=== PATIENT | female | born 1945 | race Caucasian/White ===

== ENCOUNTER → 2018-11-12 13:29 | Outpatient (CLI) | payer MEDICARE, SELFPAY ==
[2018-11-12 14:01] LABS: Add Manual Diff / Slide Review NO; Basophils Absolute Auto 100 /uL (0-100); Basophils Percent Auto 0.9 % (0-2); Eosinophils Absolute Auto 300 /uL (0-450); Eosinophils Percent Auto 4.1 % (2-4); Hematocrit 44.7 % (36-46); Hemoglobin 15.1 g/dL (12.0-16.0); Lymphocytes Absolute Auto 1700 /uL (1100-4500); Lymphocytes Percent Auto 23.7 % (25-40); Mean Corpuscular HGB Conc 33.9 % (30-36); Mean Corpuscular Hemoglobin 30.7 PG (26-34); Mean Corpuscular Volume 90.5 fL (80-100); Monocytes Absolute Auto 600 /uL (0-900); Monocytes Percent Auto 8.6 % (3-14); Neutrophils Absolute Auto 4600 /uL (1500-7000); Neutrophils Percent Auto 62.7 % (50-75); Platelet Count 322 X10^3/uL (150-400); Red Blood Cell Count 4.94 X10^6/uL (4.0-5.2); Red Cell Distribution Width 13.9 % (11.6-14.8); White Blood Cell Count 7.3 X10^3/uL (4.5-11.0)
[2018-11-12 15:26] LABS: Alanine Aminotransferase 14 IU/L (9-52); Albumin 4.1 g/dL (3.5-5.0); Albumin Globulin Ratio 1.2 (1.0-2.8); Alkaline Phosphatase 90 U/L (38-126); Aspartate Aminotransferase 21 IU/L (14-36); Bilirubin Total 0.6 mg/dL (0.2-1.3); Blood Urea Nitrogen 16 mg/dL (7-17); Calcium 9.2 mg/dL (8.4-10.2); Carbon Dioxide 28 mmol/L (22-32); Chloride 105 mmol/L (98-107); Cholesterol 195 mg/dL (140-199); Estimated Glomerular Filt Rate > 60.0 mL/min (>60); Globulin 3.3 g/dL (1.7-4.1); Glucose 97 mg/dL (80-110); HDL Cholesterol 59 mg/dL (40-60); HEMOLYSIS < 15 (0-50); LDL Cholesterol Calculated 99 mg/dL (<100); Potassium 4.4 mmol/L (3.4-5.1); Sodium 140 mmol/L (137-145); Total Protein 7.4 g/dL (6.3-8.2); Triglycerides 186 mg/dL (35-150)
[2018-11-12 15:42] LABS: Vitamin D 25 Hydroxy (D3) 22.5 ng/mL (30.0-100.0)
[2018-11-12 15:45] LABS: Free T4, Direct Thyroxine 0.78 ng/dL (0.78-2.19)
[2018-11-12 16:28] LABS: Thyroid Stimulating Hormone 2.89 uIU/mL (0.47-4.68)
[2018-11-17 09:13] LABS: Triiodothyronine T3 Total 157 ng/dL (76-181)
== END ==
PROVIDERS: Visit Provider Internal Medicine
DX: Z13.820 Encounter for screening for osteoporosis (principal); M85.851 Other specified disorders of bone density and structure, right thigh; E55.9 Vitamin D deficiency, unspecified; E07.9 Disorder of thyroid, unspecified; Z85.42 Personal history of malignant neoplasm of other parts of uterus; Z13.220 Encounter for screening for lipoid disorders
CPT/HCPCS: 36415; 77080; 80053; 80061; 82306; 84439; 84443; 84480; 85025

== ENCOUNTER → 2019-07-13 13:00 | Outpatient (CLI) | payer OTHER, SELFPAY ==
[2019-07-13 14:25] LABS: Hematocrit 42.8 % (36-46); Hemoglobin 14.6 g/dL (12.0-16.0); Mean Corpuscular HGB Conc 34.2 % (30-36); Mean Corpuscular Hemoglobin 31.8 PG (26-34); Mean Corpuscular Volume 92.9 fL (80-100); Platelet Count 303 X10^3/uL (150-400); Red Cell Distribution Width 13.2 % (11.6-14.8); White Blood Cell Count 6.7 X10^3/uL (4.5-11.0)
[2019-07-13 15:02] LABS: Neutrophils Absolute Manual 4288 /uL (3000-5900); RBC Morphology Normal Morphology; Total Cells Counted 100
[2019-07-13 15:13] LABS: Alanine Aminotransferase 13 IU/L (<35); Albumin 4.3 g/dL (3.5-5.0); Albumin Globulin Ratio 1.2 (1.0-2.8); Alkaline Phosphatase 82 U/L (38-126); Aspartate Aminotransferase 23 IU/L (14-36); Bilirubin Total 0.4 mg/dL (0.2-1.3); Blood Urea Nitrogen 12 mg/dL (7-17); Calcium 9.3 mg/dL (8.4-10.2); Carbon Dioxide 26 mmol/L (22-32); Chloride 107 mmol/L (98-107); Cholesterol 178 mg/dL (140-199); Estimated Glomerular Filt Rate > 60.0 mL/min (>60); Globulin 3.5 g/dL (1.7-4.1); Glucose 102 mg/dL (80-110); HDL Cholesterol 46 mg/dL (40-60); HEMOLYSIS < 15 (0-50); LDL Cholesterol Calculated 99 mg/dL (<100); Potassium 3.7 mmol/L (3.4-5.1); Sodium 141 mmol/L (137-145); Total Protein 7.8 g/dL (6.3-8.2); Triglycerides 166 mg/dL (35-150)
[2019-07-13 16:13] LABS: Vitamin D 25 Hydroxy (D3) 25.3 ng/mL (30.0-100.0)
[2019-07-13 16:14] LABS: Free T3, Triiodothyronine Free 5.35 pg/mL (2.77-5.27)
[2019-07-13 16:29] LABS: TSH w/ Reflex to FT4 0.47 uIU/mL (0.47-4.68)
== END ==
PROVIDERS: PCP Internal Medicine; Referring Provider Internal Medicine; Visit Provider Internal Medicine
DX: Z13.220 Encounter for screening for lipoid disorders (principal); E03.9 Hypothyroidism, unspecified; E88.9 Metabolic disorder, unspecified; Z85.42 Personal history of malignant neoplasm of other parts of uterus
CPT/HCPCS: 36415; 80053; 80061; 82306; 84443; 84481; 85025

== ENCOUNTER → 2019-07-25 12:47 | Outpatient (CLI) | payer OTHER, SELFPAY ==
--- NOTE | 2019-07-25 | DI.MRI.S_ITS ---
PROCEDURE: MR HEAD/BRAIN WO CON INDICATIONS: HEADACHE TECHNIQUE: Non-contrast axial T1 spin echo, axial T2 fast spin echo, sagittal and axial FLAIR, coronal T2 fast spin echo, axial gradient echo, axial diffusion and ADC through the brain. COMPARISON: [facility], MR, MR ANGIO HEAD WO CON, 07/25/2019, 13:05. FINDINGS: Image quality: Excellent. CSF spaces: Ventricles appear symmetric in size and shape. Basal cisterns are patent. No extra-axial fluid collections. Brain: No intracranial bleeds or mass effects. There is cerebral volume loss for age. There are periventricular and deep white matter chronic small vessel ischemic changes. Brainstem appears normal. Diffusion-weighted images show no acute ischemic insults. No chronic ischemic insults. Normal intravascular flow voids are present. Skull and face: Calvarial bone marrow is normal in signal. Incidental note is made of hyperostosis frontalis. This is not considered to be pathologic in a woman of this age. Orbits are normal. Note is made of bilateral lens replacements. Sinuses: Sinuses and mastoids are clear. IMPRESSION: Unremarkable intracranial study, without an imaging explanation found for the patient's presenting history of headache. Note is made of age-appropriate brain parenchymal volume loss and chronic small vessel ischemic changes. Dictated by: Ky Harding M.D. on 07/25/2019 at 13:28 Approved by: Ky Harding M.D. on 07/25/2019 at 13:29
--- NOTE | 2019-07-25 | DI.MRI.S_ITS ---
PROCEDURE: MR ANGIO HEAD WO CON INDICATIONS: HEADACHE TECHNIQUE: Noncontrast axial 3-D [id number] MR angiogram, with 3-dimensional maximum intensity projection (MIP) reformats of the internal carotid arteries and posterior circulation then performed. COMPARISON: [facility], , MR HEAD/BRAIN WO CON, 07/25/2019, 13:05. FINDINGS: Image quality: Excellent. Anterior circulation: Intracranial internal carotid arteries demonstrate normal size and intraluminal flow signal. The flow within the paired anterior cerebral arteries is normal and symmetric. The flow within the middle cerebral arteries is normal and symmetric. The anterior communicating artery is not definitely seen. No stenoses, occlusions, or aneurysms. Posterior circulation: Visualized portions of the vertebral arteries demonstrate normal caliber, and join to form a normal appearing basilar artery. The flow within the posterior cerebral arteries is normal and symmetric. No stenoses, occlusions, or aneurysms. IMPRESSION: No findings of aneurysm can be seen in this patient a presenting history of headaches. Dictated by: Ky Harding M.D. on 07/25/2019 at 13:29 Approved by: Ky Harding M.D. on 07/25/2019 at 13:30
--- NOTE | 2019-07-25 | DI.CT.S_ITS ---
PROCEDURE: CT ABDOMEN PELVIS W CON INDICATIONS: ABDOMINAL PAIN TECHNIQUE: After the administration of oral and intravenous contrast, 5 mm thick sections acquired from the diaphragms to the symphysis. 5 mm thick coronal and sagittal reformats were performed. For radiation dose reduction, the following was used: automated exposure control, adjustment of mA and/or kV according to patient size. COMPARISON: None. FINDINGS: Image quality: Excellent. ABDOMEN: Lung bases: Lung bases are clear. Heart size is normal. Solid organs: Mild hepatic steatosis. Gallbladder surgically absent. Biliary system is non-dilated. Pancreas enhances normally. Spleen is normal in size and enhancement. No adrenal nodules. Kidneys are normal in size and enhancement, without hydronephrosis. Peritoneum and bowel: Postsurgical changes present at the GE junction.. There is questionable duodenal and proximal jejunal mural thickening however limited evaluation given relatively collapsed state. Scattered air-fluid levels seen without pathologic bowel dilatation No free fluid or air. Normal appendix. Colonic diverticulosis is seen without evidence of acute complication. Nodes and vessels: No retroperitoneal or mesenteric adenopathy. Aorta and inferior vena cava are normal in caliber. Miscellaneous: No ventral hernias. PELVIS: Genitourinary: Bladder largely collapsed and grossly unremarkable Miscellaneous: No inguinal hernias or adenopathy. Bones: No suspicious bony lesions. No vertebral body compression fractures. IMPRESSION: Questionable duodenal and proximal jejunal mural thickening raising possibility of low-grade enteritis, although limited evaluation given largely collapsed state of bowel. Please correct clinically and with laboratory data Elsewhere, no acute findings. No specific evidence of metastatic disease. Dictated by: Goran Kim M.D. on 07/25/2019 at 16:12 Approved by: Goran Kim M.D. on 07/25/2019 at 16:19
== END ==
PROVIDERS: PCP Internal Medicine; Referring Provider Internal Medicine; Visit Provider Internal Medicine
DX: G44.329 Chronic post-traumatic headache, not intractable (principal); H05.26 Pulsating exophthalmos; S09.90XS Unspecified injury of head, sequela; R10.9 Unspecified abdominal pain; K76.0 Fatty (change of) liver, not elsewhere classified; K57.90 Diverticulosis of intestine, part unspecified, without perforation or abscess without bleeding; Z90.49 Acquired absence of other specified parts of digestive tract
CPT/HCPCS: 70544; 70551; 74177; Q9967

== ENCOUNTER → 2019-07-26 18:42 | Outpatient (ROUT) | payer OTHER, SELFPAY | PROVIDERS: PCP Internal Medicine; Visit Provider Internal Medicine | DX: R35.0 Frequency of micturition (principal) | CPT/HCPCS: 87077; 87086; 87186 ==

== ENCOUNTER → 2019-11-03 14:09 | Outpatient (CLI) | payer OTHER, SELFPAY ==
[2019-11-03 17:55] LABS: T4 Total Thyroxine 9.92 ug/dL (5.5-11.0)
[2019-11-03 17:56] LABS: Vitamin D 25 Hydroxy (D3) 28.4 ng/mL (30.0-100.0)
[2019-11-03 18:09] LABS: TSH w/ Reflex to FT4 2.25 uIU/mL (0.47-4.68)
[2019-11-04 07:49] LABS: Triiodothyronine T3 Total 90 ng/dL (71-180)
== END ==
PROVIDERS: PCP Internal Medicine; Referring Provider Internal Medicine; Visit Provider Internal Medicine
DX: R10.9 Unspecified abdominal pain (principal); E03.9 Hypothyroidism, unspecified; E55.9 Vitamin D deficiency, unspecified
CPT/HCPCS: 36415; 82306; 84436; 84443; 84480

== ENCOUNTER → 2019-11-07 14:56 | Outpatient (CLI) | payer OTHER, SELFPAY ==
--- NOTE | 2019-11-07 | DI.RAD.S_ITS ---
PROCEDURE: XR FOOT RT MIN 3V INDICATIONS: PAIN IN RIGHT FOOT TECHNIQUE: 3 views of the foot were acquired. COMPARISON: None. FINDINGS: Bones: No fractures or dislocations. No suspicious bony lesions. Soft tissues: No tibiotalar joint effusion. Achilles tendon appears normal. IMPRESSION: Source of pain is not seen. Dictated by: Josiah Johnson M.D. on 11/07/2019 at 15:42 Approved by: Josiah Johnson M.D. on 11/07/2019 at 15:43
[2019-11-07 16:09] LABS: Add Manual Diff / Slide Review NO; Basophils Absolute Auto 100 /uL (0-100); Eosinophils Absolute Auto 400 /uL (0-450); Eosinophils Percent Auto 4.6 % (2-4); Hematocrit 41.7 % (36-46); Hemoglobin 14.4 g/dL (12.0-16.0); Lymphocytes Absolute Auto 1800 /uL (1100-4500); Lymphocytes Percent Auto 18.8 % (25-40); Mean Corpuscular HGB Conc 34.4 % (30-36); Mean Corpuscular Hemoglobin 31.6 PG (26-34); Mean Corpuscular Volume 91.8 fL (80-100); Monocytes Absolute Auto 700 /uL (0-900); Monocytes Percent Auto 7.9 % (3-14); Neutrophils Absolute Auto 6300 /uL (1500-7000); Neutrophils Percent Auto 67.7 % (50-75); Platelet Count 353 X10^3/uL (150-400); Red Blood Cell Count 4.55 X10^6/uL (4.0-5.2); Red Cell Distribution Width 13.9 % (11.6-14.8); White Blood Cell Count 9.4 X10^3/uL (4.5-11.0)
[2019-11-07 16:24] LABS: Alanine Aminotransferase 12 IU/L (<35); Albumin 4.1 g/dL (3.5-5.0); Albumin Globulin Ratio 1.1 (1.0-2.8); Alkaline Phosphatase 78 U/L (38-126); Aspartate Aminotransferase 21 IU/L (14-36); BUN Creatinine Ratio 23.3 (6-22); Bilirubin Total 0.4 mg/dL (0.2-1.3); Blood Urea Nitrogen 20 mg/dL (7-17); Calcium 9.6 mg/dL (8.4-10.2); Carbon Dioxide 28 mmol/L (22-32); Chloride 104 mmol/L (98-107); Estimated Glomerular Filt Rate > 60.0 mL/min (>60); Globulin 3.6 g/dL (1.7-4.1); Glucose 102 mg/dL (80-110); HEMOLYSIS < 15 (0-50); Potassium 4.4 mmol/L (3.4-5.1); Sodium 140 mmol/L (137-145); Total Protein 7.7 g/dL (6.3-8.2); Uric Acid 9.5 mg/dL (2.5-6.2)
[2019-11-07 16:31] LABS: C-Reactive Protein Quant < 0.5 mg/dL (<1.0)
[2019-11-07 16:44] LABS: Erythrocyte Sedimentation Rate 13 MM/HR (0-20)
== END ==
PROVIDERS: Physician Assistant; PCP Internal Medicine; Referring Provider Internal Medicine; Visit Provider Internal Medicine
DX: M10.9 Gout, unspecified (principal); M79.671 Pain in right foot
CPT/HCPCS: 36415; 73630; 80053; 84550; 85025; 85651; 86140

== ENCOUNTER → 2019-11-10 13:07 | Outpatient (CLI) | payer OTHER, SELFPAY ==
--- NOTE | 2019-11-10 | DI.MRI.S_ITS ---
PROCEDURE: MR CERVICAL SPINE WO CON INDICATIONS: Radiculopathy, cervical region TECHNIQUE: Noncontrast sagittal T1 spin echo and T2 fast spin echo, sagittal STIR, foraminal oblique sagittal T2 fast spin echo, and axial gradient echo or T2 fast spin echo through the cervical spine. COMPARISON: None. FINDINGS: Image quality: Excellent. Alignment and Curvature: There is mild reversal of normal cervical curvature with apex at C4. There is trace retrolisthesis of C4 on C5, C5 on C6, trace anterolisthesis of C7 on T1. Bone Marrow: Marrow demonstrates normal overall signal. Spinal Cord: Visualized spinal cord has normal size and signal. No cerebellar tonsillar herniation. Paraspinous Soft Tissues: No paravertebral masses. Prevertebral soft tissues are normal in thickness. Discs: Moderate to severe desiccation is present of the cervical spine. C2-C3: Minimal disc bulge without spinal stenosis or foraminal narrowing. Mild uncovertebral hypertrophy. C3-C4: Mild disc bulge with mild/moderate spinal stenosis. Moderate left foraminal narrowing with uncovertebral hypertrophy. C4-C5: Mild disc bulge with moderate to severe spinal stenosis and slight indentation of the anterior thecal sac and cord. Minimal right and moderate left foraminal narrowing with uncovertebral hypertrophy. C5-C6: Mild disc bulge with moderate to severe spinal stenosis. Moderate bilateral foraminal narrowing, left greater than right with uncovertebral hypertrophy. C6-C7: Mild disc bulge with moderate to severe spinal stenosis. Moderate to severe right and moderate left foraminal narrowing with uncovertebral hypertrophy. C7-T1: Mild disc bulge without spinal stenosis or foraminal narrowing. IMPRESSION: 1. Multilevel spinal stenosis most severe from C4-5 through C6-7 secondary to disc bulge which contribute infected reversal cervical curvature. 2. Multilevel foraminal narrowing most severe at C6-7 secondary to uncovertebral arthropathy. Dictated by: Misty Davila M.D. on 11/10/2019 at 16:20 Approved by: Misty Davila M.D. on 11/10/2019 at 16:28
== END ==
PROVIDERS: PCP Internal Medicine; Referring Provider Internal Medicine; Visit Provider Internal Medicine
DX: M50.11 Cervical disc disorder with radiculopathy, high cervical region (principal); M48.02 Spinal stenosis, cervical region
CPT/HCPCS: 72141

== ENCOUNTER → 2020-01-03 19:25 | Outpatient (ROUT) | payer OTHER, SELFPAY ==
[2020-01-05 16:36] LABS: t-Transglutaminase IgA <2 U/mL (0-3)
== END ==
PROVIDERS: PCP Internal Medicine; Visit Provider Internal Medicine
DX: Z91.018 Allergy to other foods (principal)
CPT/HCPCS: 83516; 86003

== ENCOUNTER → 2020-03-02 14:41 | Outpatient (ROUT) | payer OTHER, SELFPAY | PROVIDERS: PCP Internal Medicine; Visit Provider Internal Medicine | DX: N39.46 Mixed incontinence (principal) | CPT/HCPCS: 87086 ==

== ENCOUNTER → 2020-12-27 16:02 | Outpatient (CLI) | payer MEDICARE, SELFPAY ==
[2020-12-27 16:17] LABS: Bacteria Urine None Seen
[2020-12-27 17:00] LABS: Appearance Urine UA CLEAR; Bilirubin Urine UA NEGATIVE (NEGATIVE); Color Urine UA YELLOW; Glucose Urine UA NEGATIVE (Negative); Ketones Urine UA TRACE (NEGATIVE); Leukocyte Esterase Urine UA 1+ (NEGATIVE); Nitrite Urine UA POSITIVE (Negative); Occult Blood Urine UA TRACE-LYSED (Negative); Protein Urine UA TRACE (Negative); Specific Gravity Urine UA 1.025 (1.000-1.035); Urobilinogen Urine UA 0.2 E.U./dL (0.2)
[2020-12-27 17:01] LABS: pH Urine UA 5.5 (4.5-8.0)
[2020-12-27 17:04] LABS: Culture Indicated Urine Specimen Cultured; RBC Urine 1-5/HPF (0-5/HPF); Squamous Epithelial Cell Urine 0-1 /HPF (0-5/HPF); WBC Urine 5-10/HPF (0-5/HPF)
== END ==
PROVIDERS: PCP Student in an Organized Health Care Education/Training Program; Referring Provider Student in an Organized Health Care Education/Training Program; Visit Provider Student in an Organized Health Care Education/Training Program
DX: N39.490 Overflow incontinence (principal)
CPT/HCPCS: 81001; 87077; 87086; 87186

== ENCOUNTER → 2021-01-03 09:34 | Outpatient (CLI) | payer MEDICARE, SELFPAY ==
--- NOTE | 2021-01-03 09:35 | DI.RAD.S_ITS ---
PROCEDURE: XR FOOT LT MIN 3V INDICATIONS: L lateral proximal 5th MTP pain, not able to walk TECHNIQUE: 3 views of the foot were acquired. COMPARISON: [facility], CR, XR FOOT RT MIN 3V, 11/07/2019, 15:14. FINDINGS: Bones: No fractures or dislocations. No suspicious bony lesions. Mild 1st MTP degenerative change. Soft tissues: No tibiotalar joint effusion. Achilles tendon appears normal. IMPRESSION: No evidence acute bony abnormality of the left foot. If clinical suspicion and/or symptoms persist, further assessment with repeat plain films, or advanced imaging (e.g., CT, MRI, or bone scan) may be helpful for further assessment. Dictated by: Eliezer Anne M.D. on 01/03/2021 at 9:58 Approved by: Eliezer Anne M.D. on 01/03/2021 at 9:59
--- NOTE | 2021-01-03 09:35 | DI.RAD.S_ITS ---
PROCEDURE: XR ANKLE LT MIN 3V INDICATIONS: L lateral proximal 5th MTP pain, not able to walk TECHNIQUE: 3 views of the ankle were acquired. COMPARISON: [facility], CR, XR FOOT LT MIN 3V, 01/03/2021, 9:33. FINDINGS: Bones: No fractures or dislocations. Ankle mortise is normally aligned. No suspicious bony lesions. Soft tissues: No tibiotalar joint effusion. Achilles tendon appears normal. IMPRESSION: No evidence acute bony abnormality of the left ankle. If clinical suspicion and/or symptoms persist, further assessment with repeat plain films, or advanced imaging (e.g., CT, MRI, or bone scan) may be helpful for further assessment. Dictated by: Eliezer Anne M.D. on 01/03/2021 at 9:56 Approved by: Eliezer Anne M.D. on 01/03/2021 at 9:58
== END ==
PROVIDERS: PCP Student in an Organized Health Care Education/Training Program; Referring Provider Physician Assistant; Visit Provider Physician Assistant
DX: M79.672 Pain in left foot (principal)
CPT/HCPCS: 73610; 73630

== ENCOUNTER → 2021-02-11 13:40 | Outpatient (CLI) | payer MEDICARE, SELFPAY ==
--- NOTE | 2021-02-11 13:49 | DIET.CONS ---
Dietary Consultation Not Assessment: 75y F referred to nutrition for help with diet for gouty flairs. Pt reports hx of 2 gout attacks recently and feels she has uric acid crystals built up in her ear cartilage. Pt reports long hx constipation recently told to eat more dietary fiber, when she tried, she had significant abd px. PMHx: sleeve gastrectomy about 10y ago lost 90# initially then gained 7# which she has been able to maintain. does get heartburn, low level nausea constantly, is getting nausea/dizzy more recently c frequent falls. Pt does not take a MVI, has hx low Vit D Pt likes bread, potato, sugar, etoh, coffee, protein, does not like fruits/veggies Pts food choices limited by fact she doesn't have many teeth. Pt uses Raul Cambodian Onion soup mix to make meat gravies and had been drinking scotch and soda prior to gout attacks. Pt is shaken by most recent gouty flare. She was in bed for 10 days. Pt does have Rx for allopurinol but only takes prn. Pt has since stopped drinking etoh, gave it away to others, does have alcoholism in family. Labs: Uric Acid 9.5 H (11/25) Nutrition Diagnosis: nutrition related knowledge deficit r/t medical nutrition therapy for gout aeb pt shares conflicting advice on foods she feels causes her gout, pt has Rx for allopurinol but does not take regularly, pt has had two flares in past few months, pt eats diet high in purines. Interventions: 1. Provided pt education and handout on high purine foods to severely limit or eliminate from diet including: etoh and meat gravies (or those containing yeast extracts), certain seafoods, and moderate purine foods to limit daily intake: beans, lentils, cauliflower, mushrooms, oatmeal, bran. 2. Collaborated c pt on meal plan to support overall health with low intake purines and high intake soluble fiber. Pt will consume dried beans several times per week but will limit to one cup at a time, pt will continue to eat bananas, applesauce, up to 1c oatmeal, peanut butter, 4oz daily chicken. Pt received list of high fiber foods she enjoys as reminder. 3. To avoid constipation with increased soluble fiber foods, encouraged pt to stay hydrated. Pt dislikes water, encouraged pt to drink warm teas, carbonated water mixed c tart sharif juice to support hydration. 4. Because pt is s/p gastric sleeve c no MVI use and hx low Vit D, high etoh use, and reported new nausea and fatigue, recc vit D, B1 and B12 levels checked. 5. Recc PCP clarify plan for allopurinol use.
== END ==
PROVIDERS: PCP Student in an Organized Health Care Education/Training Program; Referring Provider Student in an Organized Health Care Education/Training Program; Visit Provider Student in an Organized Health Care Education/Training Program
DX: M10.9 Gout, unspecified (principal); Z90.3 Acquired absence of stomach [part of]; Z71.3 Dietary counseling and surveillance
CPT/HCPCS: 97802

== ENCOUNTER 2021-03-03 15:02 | Emergency (ER) | payer MEDICARE, SELFPAY ==
[2021-03-03] VITALS (7 sets, daily range): BP systolic 149–158; BP diastolic 70–85; PULSE 59–65; RESP 15–24; O2SAT 95–97
[2021-03-03 15:59] LABS: Add Manual Diff / Slide Review NO; Basophils Absolute Auto 0 /uL (0-100); Basophils Percent Auto 0.6 % (0-2); Eosinophils Absolute Auto 200 /uL (0-450); Eosinophils Percent Auto 3.6 % (2-4); Hemoglobin 14.2 g/dL (12.0-16.0); Lymphocytes Absolute Auto 1800 /uL (1100-4500); Mean Corpuscular HGB Conc 32.9 % (30-36); Mean Corpuscular Hemoglobin 29.9 PG (26-34); Mean Corpuscular Volume 90.8 fL (80-100); Monocytes Absolute Auto 600 /uL (0-900); Monocytes Percent Auto 8.7 % (3-14); Neutrophils Absolute Auto 4200 /uL (1500-7000); Neutrophils Percent Auto 61.1 % (50-75); Platelet Count 271 X10^3/uL (150-400); Red Blood Cell Count 4.74 X10^6/uL (4.0-5.2); Red Cell Distribution Width 13.4 % (11.6-14.8); White Blood Cell Count 6.8 X10^3/uL (4.5-11.0)
[2021-03-03 16:09] LABS: Lactate (Lactic Acid) 0.9 mmol/L (0.7-2.1)
[2021-03-03 16:10] LABS: Alanine Aminotransferase 21 IU/L (<35); Albumin Globulin Ratio 1.2 (1.0-2.8); Alkaline Phosphatase 82 U/L (38-126); Aspartate Aminotransferase 27 IU/L (14-36); BUN Creatinine Ratio 23.2 (6-22); Bilirubin Total 0.3 mg/dL (0.2-1.3); Blood Urea Nitrogen 16 mg/dL (7-17); Calcium 9.3 mg/dL (8.4-10.2); Carbon Dioxide 27 mmol/L (22-32); Chloride 106 mmol/L (98-107); Estimated Glomerular Filt Rate > 60.0 mL/min (>60); Globulin 3.3 g/dL (1.7-4.1); Glucose 94 mg/dL (80-110); HEMOLYSIS 17 (0-50); Lipase 61 U/L (23-300); Potassium 3.9 mmol/L (3.4-5.1); Sodium 140 mmol/L (137-145); Total Protein 7.3 g/dL (6.3-8.2)
--- NOTE | 2021-03-03 16:10 | ED_ITS ---
HPI - Abdominal Pain General Chief Complaint: Urogenital-Female Stated Complaint: NOT ABLE TO PEE Time Seen by Provider: 03/03/21 15:44 History of Present Illness HPI narrative: Patient is a 75-year-old female with history of HPV recently treated at [place], endometrial cancer, UTI is not vaccinated for COVID presenting today with right flank pain. She states that she has had flank pain ongoing for a while it seems to be getting progressively worse. She states that she has not urinated for the last 2 days. She may have had dribbles yesterday but not really sure. She thought that her urine was getting dark. Some a told her to push on her belly and lean over the stomach this morning to get urine out so she tried that today and she did get some urine out. She really has no abdominal pain nausea vomiting fevers chest pain or palpitations. Her flank pain does not radiate down her leg around to her abdomen. She has not taken anything new for pain. Related Data Previous Rx's Medication Instructions Recorded escitalopram oxalate 10 mg tablet 10 mg PO DAILY #90 tab 08/23/20 (Lexapro) levothyroxine 88 mcg tablet 88 mcg PO DAILY #90 tab 08/23/20 liothyronine 5 mcg tablet 2.5 mcg PO DAILY #90 tab 08/23/20 colchicine 0.6 mg tablet 0.6 mg PO DAILY #90 tab 02/12/21 Allergies Allergy/AdvReac Type Severity Reaction Status Date / Time No Known Drug Allergies Allergy Verified 03/03/21 15:18 Review of Systems Review of Systems Narrative: GENERAL: Denies chills, fatigue, malaise, fever, sweats, travel HEENT: Denies sinus pain, ear pain, sore throat, difficulty swallowing, neck pain RESPIRATORY: Denies dyspnea, cough, wheezing, hemoptysis, sputum. CARDIOVASCULAR: Denies chest pain, palpitations, orthopnea, edema GASTROINTESTINAL: Denies nausea, vomiting, abdominal pain, diarrhea, constipation, melena. : See HPI MUSCULOSKELETAL: Back pain SKIN: No rash, no erythema, no pruritus NEUROLOGIC: Denies weakness, dizziness, headache, numbness, change in speech, c onfusion PSYCHIATRIC: No concerning psychosocial issues. 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 HEENT: Head atraumatic,EOMI, pupils reactive, face symmetric, [moist] mucous membranes CARDIOVASCULAR: Regular rate and rhythm without murmurs, rubs or gallops. RESPIRATORY: Breath sounds equal bilaterally, no wheezes rales or rhonchi. ABDOMEN: Soft, nontender. Normoactive bowel sounds all 4 quadrants. No guarding or rebound. : Tender rightCVA tenderness EXTREMITIES: Normal range of motion, no clubbing or edema. Neurovascularly intact NEUROLOGICAL: Alert and oriented x4.Normal gait and speech. SKIN: Warm, dry, no laceration, no petechiae, no rashes or lesions. Course Orders Ordered: ED Orders 03/03/21 15:17 EKG-12 Lead Stat 03/03/21 15:54 Complete Blood Count AUTO DIFF Stat Comprehensive Metabolic Panel Stat Lactate (Lactic Acid) Stat Lipase Stat 03/03/21 17:20 Urinalysis and Microscopic Stat 03/03/21 17:23 CT abdomen pelvis w con Stat Vital Signs Vital signs: Vital Signs - 8 hr 03/03/21 16:08 03/03/21 16:30 03/03/21 17:00 Pulse Rate 65 63 Respiratory Rate 24 15 17 Blood Pressure Pulse Oximetry 03/03/21 17:30 03/03/21 18:00 03/03/21 18:30 Pulse Rate 59 L 62 61 Respiratory Rate 15 17 16 Blood Pressure 149/85 H 154/70 H Pulse Oximetry 97 96 03/03/21 18:38 Pulse Rate 63 Respiratory Rate 20 Blood Pressure 158/72 H Pulse Oximetry 95 MDM - Abdominal Pain Lab Data Result diagrams: 03/03/21 15:54 03/03/21 15:54 Labs: Lab Results 03/03/21 03/03/21 03/03/21 Range/Units 15:54 15:54 15:54 WBC 6.8 (4.5-11.0) X10^3/uL RBC 4.74 (4.0-5.2) X10^6/uL Hgb 14.2 (12.0-16.0) g/dL Hct 43.0 (36-46) % MCV 90.8 (80-100) fL MCH 29.9 (26-34) PG MCHC 32.9 (30-36) % RDW 13.4 (11.6-14.8) % Plt Count 271 (150-400) X10^3/uL Neut % (Auto) 61.1 (50-75) % Lymph % (Auto) 26.0 (25-40) % Bartholomew % (Auto) 8.7 (3-14) % Eos % (Auto) 3.6 (2-4) % Baso % (Auto) 0.6 (0-2) % Neut # (Auto) 4200 (3163-0434) /uL Lymph # (Auto) 1800 (0417-7751) /uL Bartholomew # (Auto) 600 (0-900) /uL Eos # (Auto) 200 (0-450) /uL Baso # (Auto) 0 (0-100) /uL Sodium 140 (137-145) mmol/L Potassium 3.9 (3.4-5.1) mmol/L Chloride 106 (98-107) mmol/L Carbon Dioxide 27 (22-32) mmol/L BUN 16 (7-17) mg/dL Creatinine 0.69 (0.52-1.04) mg/dL Estimated GFR > 60.0 (>60) mL/min BUN/Creatinine Ratio 23.2 H (6-22) Glucose 94 (80-110) mg/dL Lactate 0.9 (0.7-2.1) mmol/L Calcium 9.3 (8.4-10.2) mg/dL Total Bilirubin 0.3 (0.2-1.3) mg/dL AST 27 (14-36) IU/L ALT 21 (<35) IU/L Alkaline Phosphatase 82 (38-126) U/L Total Protein 7.3 (6.3-8.2) g/dL Albumin 4.0 (3.5-5.0) g/dL Globulin 3.3 (1.7-4.1) g/dL Albumin/Globulin Ratio 1.2 (1.0-2.8) Lipase 61 (23-300) U/L Urine Color Urine Appearance Urine pH (4.5-8.0) Ur Specific Chloride (1.000-1.035) Urine Protein (Negative) Urine Glucose (UA) (Negative) g/dL Urine Ketones (NEGATIVE) Urine Occult Blood (Negative) Urine Nitrate (Negative) Urine Bilirubin (NEGATIVE) Urine Urobilinogen (0.2) E.U./dL Ur Leukocyte Esterase (NEGATIVE) Urine RBC (0-5/HPF) Urine WBC (0-5/HPF) Urine Bacteria (None) Ur Culture Indicated? Micro UA Comment 03/03/21 Range/Units 17:20 WBC (4.5-11.0) X10^3/uL RBC (4.0-5.2) X10^6/uL Hgb (12.0-16.0) g/dL Hct (36-46) % MCV (80-100) fL MCH (26-34) PG MCHC (30-36) % RDW (11.6-14.8) % Plt Count (150-400) X10^3/uL Neut % (Auto) (50-75) % Lymph % (Auto) (25-40) % Bartholomew % (Auto) (3-14) % Eos % (Auto) (2-4) % Baso % (Auto) (0-2) % Neut # (Auto) (6500-8355) /uL Lymph # (Auto) (1126-4591) /uL Bartholomew # (Auto) (0-900) /uL Eos # (Auto) (0-450) /uL Baso # (Auto) (0-100) /uL Sodium (137-145) mmol/L Potassium (3.4-5.1) mmol/L Chloride (98-107) mmol/L Carbon Dioxide (22-32) mmol/L BUN (7-17) mg/dL Creatinine (0.52-1.04) mg/dL Estimated GFR (>60) mL/min BUN/Creatinine Ratio (6-22) Glucose (80-110) mg/dL Lactate (0.7-2.1) mmol/L Calcium (8.4-10.2) mg/dL Total Bilirubin (0.2-1.3) mg/dL AST (14-36) IU/L ALT (<35) IU/L Alkaline Phosphatase (38-126) U/L Total Protein (6.3-8.2) g/dL Albumin (3.5-5.0) g/dL Globulin (1.7-4.1) g/dL Albumin/Globulin Ratio (1.0-2.8) Lipase (23-300) U/L Urine Color Yellow Urine Appearance Clear Urine pH 5.5 (4.5-8.0) Ur Specific Chloride 1.010 (1.000-1.035) Urine Protein Negative (Negative) Urine Glucose (UA) Trace H (Negative) g/dL Urine Ketones Trace H (NEGATIVE) Urine Occult Blood Negative (Negative) Urine Nitrate Negative (Negative) Urine Bilirubin Negative (NEGATIVE) Urine Urobilinogen 0.2 (0.2) E.U./dL Ur Leukocyte Esterase Negative (NEGATIVE) Urine RBC None seen (0-5/HPF) Urine WBC None seen (0-5/HPF) Urine Bacteria None seen (None) Ur Culture Indicated? Cult not indicated Micro UA Comment Microscopic normal Imaging Data CT scan - abdomen/pelvis: Radiologist's Impression: PROCEDURE:? CT ABDOMEN PELVIS W CON ? INDICATIONS:? right flank pain, ab pain hx cancer ? TECHNIQUE:? After the administration of oral and IV contrast, axial sections were acquired from the lung bases to the pubic symphysis.? Coronal and sagittal reformats were performed.? For radiation dose reduction, the following was used:? automated exposure control, adjustment of mA and/or kV according to patient size. ? COMPARISON:? [facility], CT, CT ABDOMEN PELVIS W CON, 07/25/2019, 14:21. ? FINDINGS:? Image quality:? Excellent.? ? Lung bases:? Unremarkable.? ? A small hiatal hernia is incidentally noted.? Heart:? No significant findings. ? ? ABDOMEN: Liver:? Unremarkable.? ? Gallbladder:? Removed. Biliary ducts:? Unremarkable.? ? Pancreas:? Unremarkable.? ? Spleen:? Unremarkable.? ? Adrenal Glands:? Unremarkable.? ? Kidneys and Ureters:? Unremarkable.? ? ? Stomach and Bowel:? Generalized prominence of the small bowel can be seen proximally, with generalized wall thickening and hyperenhancement seen proximally.? Small b owel loops measure up to 2.5 cm.? Distally, there are areas of focal small bowel narrowing, as on series 4, image 32. Bariatric surgery is seen. A normal appendix is incidentally noted.? Colonic diverticulosis is seen, without findings of active diverticulitis.? No significant additional colonic abnormality can be seen. Peritoneum:? No abnormal intraperitoneal fluid.? No free air.? ? Ventral Wall: ? No hernia.? Abdominal Nodes:? No retroperitoneal or mesenteric adenopathy by size criteria.? Vessels:? Aorta and inferior vena cava are normal in size.? Incidental note is made of a retroaortic left renal vein.? ? PELVIS: Pelvic Organs: This patient is status post hysterectomy. No adnexal masses are seen.? Bladder:? Unremarkable.? ? Pelvic Nodes: No enlarged lymph nodes.? Miscellaneous: No inguinal hernias are seen.? Right buttock granulomas are seen. ? ? Bones:? At L5-S1, there is grade 1 anterolisthesis, with moderate to severe loss of disc height.? Bilateral L5 pars defects are seen.? Milder degenerative changes are seen elsewhere.? ? ? IMPRESSION:? Generalized abnormal small bowel proximally.? Please consider enteritis. ? Areas of focal wall thickening can be seen involving the distal small bowel, which may be related to partial small-bowel obstruction or simply may be related to artifact from peristalsis. ? ? ? Incidental note is made of: Small hiatal hernia Cholecystectomy Bariatric surgery Retroaortic left renal vein Normal appendix Diverticulosis, without active diverticulitis this Hysterectomy Focal L5-S1 degenerative change, with anterolisthesis and bilateral L5 pars d efects Likely right buttock injection granulomas ? Dictated by: Ky Harding M.D. on 03/03/2021 at 16:49 ? ? Approved by: Ky Harding M.D. on 03/03/2021 at 16:56 ? ECG Data Interpretation: Sinus rhythm rate 68 FL interval 176 QRS [address] changes MDM Narrative Medical decision making narrative: Patient has some chronic ongoing right flank pain. No acute changes are found today. Blood work and urinalysis are negative. CT does possible transition point small bowel obstruction however she does not have significant abdominal pain nausea or vomiting who at this time I do not think that it clinically correlates. She shows no significant urinary retention or evidence of dehydration. At this time patient is reassured and I recommend outpatient follow-up. Discharge Plan Departure Patient Disposition: Home Clinical Impression: Acute right flank pain Instructions: Low Back Pain Activity Restrictions/Additional Instructions: *You have been diagnosed with back pain *What to do: At this time blood work and CT scan are overall reassuring. No sign of infection. Try heating pad to help with her back. Light stretches *Continue to take medications as directed Tylenol 650 mg every 4-6 hours if needed for [id number] pain *Follow up with your primary care provider in 2-3 days *Return to ER if you should have increasing back pain, nausea, vomiting, abdominal pain or any new, worsening or concerning symptoms Prescriptions: No Action colchicine 0.6 mg tablet 0.6 mg PO DAILY Qty: 90 RF: 11 escitalopram oxalate [Lexapro] 10 mg tablet 10 mg PO DAILY Qty: 90 RF: 3 levothyroxine 88 mcg tablet 88 mcg PO DAILY Qty: 90 RF: 3 liothyronine 5 mcg tablet 2.5 mcg PO DAILY Qty: 90 RF: 3 Referrals: Saurav Brar MD [Primary Care Provider] -
--- NOTE | 2021-03-03 17:23 | DI.CT.S_ITS ---
PROCEDURE: CT ABDOMEN PELVIS W CON INDICATIONS: right flank pain, ab pain hx cancer TECHNIQUE: After the administration of oral and IV contrast, axial sections were acquired from the lung bases to the pubic symphysis. Coronal and sagittal reformats were performed. For radiation dose reduction, the following was used: automated exposure control, adjustment of mA and/or kV according to patient size. COMPARISON: [facility], CT, CT ABDOMEN PELVIS W CON, 07/25/2019, 14:21. FINDINGS: Image quality: Excellent. Lung bases: Unremarkable. A small hiatal hernia is incidentally noted. Heart: No significant findings. ABDOMEN: Liver: Unremarkable. Gallbladder: Removed. Biliary ducts: Unremarkable. Pancreas: Unremarkable. Spleen: Unremarkable. Adrenal Glands: Unremarkable. Kidneys and Ureters: Unremarkable. Stomach and Bowel: Generalized prominence of the small bowel can be seen proximally, with generalized wall thickening and hyperenhancement seen proximally. Small bowel loops measure up to 2.5 cm. Distally, there are areas of focal small bowel narrowing, as on series 4, image 32. Bariatric surgery is seen. A normal appendix is incidentally noted. Colonic diverticulosis is seen, without findings of active diverticulitis. No significant additional colonic abnormality can be seen. Peritoneum: No abnormal intraperitoneal fluid. No free air. Ventral Wall: No hernia. Abdominal Nodes: No retroperitoneal or mesenteric adenopathy by size criteria. Vessels: Aorta and inferior vena cava are normal in size. Incidental note is made of a retroaortic left renal vein. PELVIS: Pelvic Organs: This patient is status post hysterectomy. No adnexal masses are seen. Bladder: Unremarkable. Pelvic Nodes: No enlarged lymph nodes. Miscellaneous: No inguinal hernias are seen. Right buttock granulomas are seen. Bones: At L5-S1, there is grade 1 anterolisthesis, with moderate to severe loss of disc height. Bilateral L5 pars defects are seen. Milder degenerative changes are seen elsewhere. IMPRESSION: Generalized abnormal small bowel proximally. Please consider enteritis. Areas of focal wall thickening can be seen involving the distal small bowel, which may be related to partial small-bowel obstruction or simply may be related to artifact from peristalsis. Incidental note is made of: Small hiatal hernia Cholecystectomy Bariatric surgery Retroaortic left renal vein Normal appendix Diverticulosis, without active diverticulitis this Hysterectomy Focal L5-S1 degenerative change, with anterolisthesis and bilateral L5 pars defects Likely right buttock injection granulomas Dictated by: Ky Harding M.D. on 03/03/2021 at 16:49 Approved by: Ky Harding M.D. on 03/03/2021 at 16:56
[2021-03-03 17:28] LABS: Appearance Urine UA CLEAR; Bilirubin Urine UA NEGATIVE (NEGATIVE); Color Urine UA YELLOW; Glucose Urine UA TRACE g/dL (Negative); Ketones Urine UA TRACE (NEGATIVE); Leukocyte Esterase Urine UA NEGATIVE (NEGATIVE); Nitrite Urine UA NEGATIVE (Negative); Occult Blood Urine UA NEGATIVE (Negative); Protein Urine UA NEGATIVE (Negative); Urobilinogen Urine UA 0.2 E.U./dL (0.2)
[2021-03-03 17:34] LABS: pH Urine UA 5.5 (4.5-8.0)
[2021-03-03 17:40] LABS: Bacteria Urine None Seen; RBC Urine None Seen (0-5/HPF); WBC Urine None Seen (0-5/HPF)
[2021-03-03 17:41] LABS: Culture Indicated Urine Cult Not Indicated; Urine Comments Microscopic Normal
== END 2021-03-03 19:11 | disposition home or self-care (01) ==
PROVIDERS: Emergency Provider Emergency Medicine; PCP Student in an Organized Health Care Education/Training Program
DX: R10.9 Unspecified abdominal pain (principal); R33.9 Retention of urine, unspecified
CPT/HCPCS: 36415; 51798; 74177; 80053; 81001; 83605; 83690; 85025; 93005; 99284; Q9967

== ENCOUNTER → 2021-03-25 10:37 | Outpatient (CLI) | payer MEDICARE, SELFPAY ==
[2021-03-25 12:13] LABS: BUN Creatinine Ratio 22.4 (6-22); Blood Urea Nitrogen 17 mg/dL (7-17); Calcium 9.5 mg/dL (8.4-10.2); Carbon Dioxide 25 mmol/L (22-32); Chloride 106 mmol/L (98-107); Estimated Glomerular Filt Rate > 60.0 mL/min (>60); Glucose 103 mg/dL (80-110); HEMOLYSIS < 15 (0-50); Potassium 4.3 mmol/L (3.4-5.1); Sodium 140 mmol/L (137-145); Uric Acid 7.7 mg/dL (2.5-6.2)
[2021-03-25 12:25] LABS: Vitamin D 25 Hydroxy (D3) 28.4 ng/mL (30.0-100.0)
[2021-03-25 12:59] LABS: Vitamin B12 291 pg/mL (239-931)
== END ==
PROVIDERS: PCP Student in an Organized Health Care Education/Training Program; Referring Provider Student in an Organized Health Care Education/Training Program; Visit Provider Student in an Organized Health Care Education/Training Program
DX: Z98.84 Bariatric surgery status (principal); M10.9 Gout, unspecified
CPT/HCPCS: 36415; 80048; 82306; 82607; 84550

== ENCOUNTER → 2021-07-11 13:57 | Outpatient (CLI) | payer MEDICARE, SELFPAY ==
--- NOTE | 2021-07-11 13:59 | DI.MRI.S_ITS ---
PROCEDURE: MR HEAD/BRAIN WO/W CON INDICATIONS: HEADACHE/CHRONIC TECHNIQUE: Noncontrast axial T1 spin echo, axial T2 fast spin echo, sagittal and axial FLAIR, coronal T2 fast spin echo, axial gradient echo, axial diffusion and ADC through the brain. After the administration of contrast, axial and coronal 3D VIBE or T1 spin echo with fat saturation through the brain. COMPARISON: None. FINDINGS: Image quality: Excellent. CSF Spaces: Basal cisterns are patent. No extra-axial fluid collections. Ventricles are normal in size and shape. Brain: No midline shift. No intracranial bleeds or masses. No abnormal intracranial enhancement. The brainstem appears normal. Diffusion-weighted images demonstrate no acute infarct. Normal intravascular flow voids are present. Mild cerebral and cerebellar atrophy and multifocal white matter chronic ischemic change noted. Skull and face: Calvarial marrow is normal in signal. Orbits appear normal. Bilateral intraocular lens replacements noted. Incidental hyperostosis frontalis interna noted. Sinuses: Sinuses and mastoids appear clear. IMPRESSION: 1. Atrophy and white matter chronic ischemic change without acute hemorrhage, infarct or mass lesion. Approved by: Krsitian Fernandes M.D. on 07/11/2021 at 16:25
== END ==
PROVIDERS: PCP Student in an Organized Health Care Education/Training Program; Referring Provider Internal Medicine; Visit Provider Internal Medicine
DX: R51.9 Headache, unspecified (principal); G89.29 Other chronic pain
CPT/HCPCS: 70553

== ENCOUNTER → 2021-12-10 10:45 | Outpatient (CLI) | payer OTHER, SELFPAY ==
[2021-12-10 11:29] LABS: Add Manual Diff / Slide Review NO; Basophils Absolute Auto 100 /uL (0-100); Eosinophils Absolute Auto 300 /uL (0-450); Eosinophils Percent Auto 5.2 % (2-4); Lymphocytes Absolute Auto 1500 /uL (1100-4500); Lymphocytes Percent Auto 27.2 % (25-40); Mean Corpuscular HGB Conc 33.4 % (30-36); Mean Corpuscular Volume 92.7 fL (80-100); Monocytes Absolute Auto 500 /uL (0-900); Monocytes Percent Auto 9.1 % (3-14); Neutrophils Absolute Auto 3200 /uL (1500-7000); Neutrophils Percent Auto 57.5 % (50-75); Platelet Count 294 X10^3/uL (150-400); Red Blood Cell Count 4.53 X10^6/uL (4.0-5.2); Red Cell Distribution Width 15.4 % (11.6-14.8); White Blood Cell Count 5.5 X10^3/uL (4.5-11.0)
[2021-12-10 11:42] LABS: BUN Creatinine Ratio 17.6 (6-22); Blood Urea Nitrogen 13 mg/dL (7-17); Calcium 8.9 mg/dL (8.4-10.2); Carbon Dioxide 29 mmol/L (22-32); Chloride 105 mmol/L (98-107); Estimated Glomerular Filt Rate > 60 mL/min (>60); Glucose 93 mg/dL (80-110); HEMOLYSIS 22 (0-50); Potassium 4.5 mmol/L (3.4-5.1); Sodium 139 mmol/L (137-145)
== END ==
PROVIDERS: PCP Student in an Organized Health Care Education/Training Program; Referring Provider Internal Medicine Cardiovascular Disease; Visit Provider Internal Medicine Cardiovascular Disease
DX: R55 Syncope and collapse (principal)
CPT/HCPCS: 36415; 80048; 85025

== ENCOUNTER 2023-09-25 09:46 | Emergency (ER) | payer MEDICARE, SELFPAY ==
[2023-09-25] VITALS (11 sets, daily range): BP systolic 132–173; BP diastolic 62–75; PULSE 62–79; RESP 16–20; TEMP 36.4; O2SAT 93–99; BMI 26.6
--- NOTE | 2023-09-25 10:07 | DI.CT.S_ITS ---
PROCEDURE: CT HEAD/BRAIN WO CON INDICATIONS: fall on 09/05. hit head. pain TECHNIQUE: Noncontrast 4.5 mm thick angled axial sections acquired from the foramen magnum to the vertex, with coronal and sagittal reformats. For radiation dose reduction, the following was used: automated exposure control, adjustment of mA and/or kV according to patient size. COMPARISON: None. FINDINGS: Image quality: Diagnostic. CSF spaces: Basal cisterns are patent. No extra-axial fluid collections. The ventricles are symmetric in size and shape. Brain: No intracranial bleeds or masses. There is cerebral volume loss for age, with resultant ventricular and sulcal prominence. There are periventricular and deep white matter chronic small vessel ischemic changes. There is intracranial internal carotid artery atherosclerosis. Skull and face: Calvarium and visualized facial bones appear intact, without suspicious lesions. Sinuses: Visualized sinuses and mastoids are clear. IMPRESSION: No acute intracranial pathology. Dictated by: Eliezer Anne M.D. on 09/25/2023 at 11:21 Approved by: Eliezer Anne M.D. on 09/25/2023 at 11:22
[2023-09-25 10:38] LABS: Add Manual Diff / Slide Review NO; Alanine Aminotransferase 18 IU/L (<35); Albumin 4.3 g/dL (3.5-5.0); Albumin Globulin Ratio 1.4 (1.0-2.8); Alkaline Phosphatase 68 U/L (38-126); Aspartate Aminotransferase 28 IU/L (14-36); BUN Creatinine Ratio 23.9 (6-22); Basophils Absolute Auto 0 /uL (0-100); Basophils Percent Auto 0.8 % (0-2); Bilirubin Total 0.6 mg/dL (0.2-1.3); Blood Urea Nitrogen 16 mg/dL (7-17); Calcium 9.5 mg/dL (8.4-10.2); Carbon Dioxide 29 mmol/L (22-32); Chloride 108 mmol/L (98-107); Eosinophils Absolute Auto 300 /uL (0-450); Eosinophils Percent Auto 4.3 % (2-4); Estimated Glomerular Filt Rate > 60 mL/min (>60); Globulin 3.1 g/dL (1.7-4.1); Glucose 110 mg/dL (80-110); HEMOLYSIS < 15 (0-50); Hematocrit 42.4 % (36-46); Hemoglobin 14.1 g/dL (12.0-16.0); Lymphocytes Absolute Auto 1500 /uL (1100-4500); Lymphocytes Percent Auto 24.9 % (25-40); Mean Corpuscular HGB Conc 33.3 % (30-36); Mean Corpuscular Hemoglobin 31.7 PG (26-34); Mean Corpuscular Volume 95.3 fL (80-100); Monocytes Absolute Auto 500 /uL (0-900); Neutrophils Absolute Auto 3700 /uL (1500-7000); Platelet Count 317 X10^3/uL (150-400); Potassium 3.9 mmol/L (3.4-5.1); Red Blood Cell Count 4.45 X10^6/uL (4.0-5.2); Red Cell Distribution Width 13.9 % (11.6-14.8); Sodium 142 mmol/L (137-145); Total Protein 7.4 g/dL (6.3-8.2); White Blood Cell Count 5.9 X10^3/uL (4.5-11.0)
--- NOTE | 2023-09-25 11:31 | ED_ITS ---
HPI - Head Injury General Chief complaint: Head Injury Stated complaint: head injury Time Seen by Provider: 09/25/23 10:30 Source: patient Mode of arrival: Family Vehicle History of Present Illness HPI Narrative: Patient 78-year-old female history of gout and hypothyroid presenting today with ongoing headache and dizziness. She reports that she fell on Easter she tripped in her bedroom over some furniture she hit her head did not lose consciousness. She reports that she would bruising all down her left arm. She has not on anticoagulation or platelet medication. She reports that since she fell she has had ongoing headache he feels dizzy. She occasionally feels nauseous when she eats but is normal for her. No numbness tingling or weakness. She sometimes has some floaters in her eyes. She reports that she gets intermittent hot flashes which are mentioned in the last PCP note as well. Reports that she gets dizzy every time she stands up however lying still she feels okay. She has no nausea or vomiting. Related Data Previous Rx's Medication Instructions Recorded escitalopram oxalate 10 mg tablet 10 mg PO DAILY #90 tabs 08/23/20 (Lexapro) liothyronine 5 mcg tablet 2.5 mcg (1/2 x 5 mcg) PO DAILY #90 08/23/20 tabs colchicine 0.6 mg tablet 0.6 mg PO DAILY #90 tabs 02/12/21 allopurinol 300 mg tablet 300 mg PO DAILY #30 tabs 04/10/21 levothyroxine 88 mcg tablet 88 mcg PO DAILY #90 tabs 09/02/23 meclizine 25 mg tablet 25 mg PO TID PRN dizziness #10 tabs 09/25/23 Allergies Allergy/AdvReac Type Severity Reaction Status Date / Time No Known Drug Allergies Allergy Verified 08/19/23 15:35 Patient History Medical History (Updated 09/25/23 @ 13:11 by Tess Slater DO) Urge incontinence 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) History of malignant neoplasm of endometrium Stool incontinence UTI (urinary tract infection) Postmenopausal atrophic vaginitis Postsurgical dumping syndrome Acquired hypothyroidism Endometrial ca Surgical History S/P cholecystectomy Social History Smoking Status: Never smoker Smoking Status: Never smoker Exam Initial Vital Signs Initial Vital Signs: Vital Signs Temperature 97.6 F 09/25/23 10:00 Pulse Rate 79 09/25/23 10:00 Respiratory Rate 18 09/25/23 10:00 Blood Pressure 150/70 H 09/25/23 10:00 Pulse Oximetry 97 09/25/23 10:00 Oxygen Delivery Method Room Air 09/25/23 10:00 GENERAL: Alert 78-year-old female and in no acute distress. HEENT: Head atraumatic,EOMI, pupils reactive, no nystagmus keeps eyes closed during exam face symmetric, moist mucous membranes CARDIOVASCULAR: Regular rate and rhythm without murmurs, rubs or gallops. RESPIRATORY: Breath sounds equal bilaterally, no wheezes rales or rhonchi. ABDOMEN: Soft, nontender. Normoactive bowel sounds all 4 quadrants. No guarding or rebound. EXTREMITIES: Normal range of motion, no clubbing or edema. Neurovascularly intact NEUROLOGICAL: Alert and oriented x4.Normal gait and speech. Cranial nerves II through XII grossly intact. Good vjpagc-uj-wuyn, good aons-aj-jpsk, strength equal bilaterally, no dysarthria or aphasia, sensation in tact to soft touch bilaterally, no visual changes, no facial droop SKIN: Warm, dry, no laceration, no petechiae, no rashes or lesions. Scores NIH Stroke Scale Level of Conciousness: Alert, keenly responsive Ask month/age: Answers both questions correctly. Open/close eyes, close hand: Performs both tasks correctly Best gaze horizontal: Normal Visual ta: No visual loss Facial palsy: Normal symetrical movement Left arm drift: No drift for full 10 sec Right arm drift: No drift for full 10 sec Left leg drift: No drift for full 5 sec Right leg drift: No drift for full 5 sec Limb ataxia: Absent Sensory on face/arms/legs: Normal, no sensory loss Best language: No aphasia, normal Dysarthria: Normal Extinction or inattention: No abnormality Total NIH Stroke scale score: 0 Course Orders Ordered: ED Orders 09/25/23 10:07 CT head/brain wo con Stat 09/25/23 10:20 CMP [Comprehensive Metabolic Panel] Stat Complete Blood Count AUTO DIFF Stat Vital Signs Vital signs: Vital Signs - 8 hr 09/25/23 12:00 09/25/23 12:01 09/25/23 12:01 Pulse Rate 63 62 Respiratory Rate Blood Pressure 142/64 H Pulse Oximetry 96 95 04/19/24 12:30 09/25/23 12:31 09/25/23 12:31 Pulse Rate 62 62 Respiratory Rate Blood Pressure 132/62 Pulse Oximetry 93 94 09/25/23 12:45 09/25/23 12:45 09/25/23 12:51 Pulse Rate 66 Respiratory Rate 20 Blood Pressure 170/75 H Pulse Oximetry 97 MDM - Head Injury Lab Data 09/25/23 10:20 09/25/23 10:20 Labs: Lab Results 09/25/23 Range/Units 10:20 WBC 5.9 (4.5-11.0) X10^3/uL RBC 4.45 (4.0-5.2) X10^6/uL Hgb 14.1 (12.0-16.0) g/dL Hct 42.4 (36-46) % MCV 95.3 (80-100) fL MCH 31.7 (26-34) PG MCHC 33.3 (30-36) % RDW 13.9 (11.6-14.8) % Plt Count 317 (150-400) X10^3/uL Neut % (Auto) 62.0 (50-75) % Lymph % (Auto) 24.9 L (25-40) % [place] % (Auto) 8.0 (3-14) % Eos % (Auto) 4.3 H (2-4) % Baso % (Auto) 0.8 (0-2) % Neut # (Auto) 3700 (8800-0437) /uL Lymph # (Auto) 1500 (5574-8587) /uL [place] # (Auto) 500 (0-900) /uL Eos # (Auto) 300 (0-450) /uL Baso # (Auto) 0 (0-100) /uL Sodium 142 (137-145) mmol/L Potassium 3.9 (3.4-5.1) mmol/L Chloride 108 H (98-107) mmol/L Carbon Dioxide 29 (22-32) mmol/L BUN 16 (7-17) mg/dL Creatinine 0.67 (0.52-1.04) mg/dL Estimated GFR > 60 (>60) mL/min BUN/Creatinine Ratio 23.9 H (6-22) Glucose 110 (80-110) mg/dL Calcium 9.5 (8.4-10.2) mg/dL Total Bilirubin 0.6 (0.2-1.3) mg/dL AST 28 (14-36) IU/L ALT 18 (<35) IU/L Alkaline Phosphatase 68 (38-126) U/L Total Protein 7.4 (6.3-8.2) g/dL Albumin 4.3 (3.5-5.0) g/dL Globulin 3.1 (1.7-4.1) g/dL Albumin/Globulin Ratio 1.4 (1.0-2.8) Urine Dip Bedside Urine Glucose Negative Bedside Urine Bilirubin - Negative Bedside Urine Ketone - Negative Urine Specific [place] 1.020 Bedside Urine Occult Blood - Negative Bedside Urine pH 7.0 Bedside Urine Protein - Negative Bedside Urine Urobilinogen +/- 1mg Bedside Urine Nitrite - Negative Bedside Urine Leukocytes - Negative Esterase Imaging Data CT scan - head: Radiologist's Impression: PROCEDURE: CT HEAD/BRAIN WO CON INDICATIONS: fall on 09/05. hit head. pain TECHNIQUE: Noncontrast 4.5 mm thick angled axial sections acquired from the foramen magnum to the vertex, with coronal and sagittal reformats. For radiation dose reduction, the following was used: automated exposure control, adjustment of mA and/or kV according to patient size. COMPARISON: None. FINDINGS: Image quality: Diagnostic. CSF spaces: Basal cisterns are patent. No extra-axial fluid collections. The ventricles are symmetric in size and shape. Brain: No intracranial bleeds or masses. There is cerebral volume loss for age, with resultant ventricular and sulcal prominence. There are periventricular and deep white matter chronic small vessel ischemic changes. There is intracranial internal carotid artery atherosclerosis. Skull and face: Calvarium and visualized facial bones appear intact, without suspicious lesions. Sinuses: Visualized sinuses and mastoids are clear. IMPRESSION: No acute intracranial pathology. Dictated by: Eliezer Anne M.D. on 09/25/2023 at 11:21 MDM Narrative Medical decision making narrative: Patient 78-year-old female who presents today with dizziness and headache ongoing since she fell a couple of weeks ago. No focal deficits head CT is negative. NIHS 0 Records from PCP visits have been reviewed she is chronic ongoing hot flashes she has chronic nausea Blood work has been reviewed she has no leukocytosis PHILIP orElectrolyte abnormality. Imaging reviewed head CT does not show any intracranial abnormality Patient has negative NIH stroke scale, presents today with vertigo and dizziness which is worse But that she has headache and dizziness possibly mild concussion syndrome with mild vertigo. She ambulated in the ED but so little bit of difficulty. She did not want anything here in the ER her son is available to pick her up although she did drive herself. Low suspicion for posterior stroke although was considered. CT angio was not done symptoms are very positional remote consistent with a vertigo Discharge Plan Departure Patient Disposition: Home Clinical Impression: Concussion, Vertigo Instructions: Concussion, DI for Vertigo Activity Restrictions/Additional Instructions: *You have been diagnosed with concussion, vertigo *What to do: At this time blood work is overall reassuring no evidence of bladder infection. I recommend that you use a walker while walking. You likely have a concussion syndrome and possibly some vertigo *Continue to take medications as directed Meclizine 25 mg every 8 hours for dizziness only if needed --[facility] *Follow up with your primary care provider in 2-3 days or call [phone] *Return to ER if you should have increasing falls dizziness weakness [or] any new, worsening or concerning symptoms Prescriptions: New meclizine 25 mg tablet 25 mg PO TID PRN (Reason: dizziness) Qty: 10 0RF No Action allopurinol 300 mg tablet 300 mg PO DAILY Qty: 30 0RF levothyroxine 88 mcg tablet 88 mcg PO DAILY Qty: 90 0RF colchicine 0.6 mg tablet 0.6 mg PO DAILY Qty: 90 11RF Rx Instructions: 2 tabs with first sign of flare escitalopram oxalate [Lexapro] 10 mg tablet 10 mg PO DAILY Qty: 90 3RF liothyronine 5 mcg tablet 2.5 mcg PO DAILY Qty: 90 3RF Referrals: Ajay Barcenas MD [Primary Care Provider] - Stand Alone Forms: Patient Portal/API
--- NOTE | 2023-09-25 11:33 | PC.NURSE ---
Pt states that she fell on thursday and hit her head on a wrought iron railing. Pt states that she is unsure of LOC but she does not remember much of the event. Reports having a hx of being off balance as she was told by her doctor. pt a&ox4. States that she has ORTIZ that she describes as a 1/10 pain and nausea.
--- NOTE | 2023-09-25 12:52 | PC.NURSE ---
Patient has unsteady gate. During ambulation felt as if patient was going to fall multiple times.
== END 2023-09-25 13:51 | disposition home or self-care (01) ==
PROVIDERS: Emergency Provider Emergency Medicine; PCP Family Medicine
DX: S06.0X0A Concussion without loss of consciousness, initial encounter (principal); W01.10XA Fall on same level from slipping, tripping and stumbling with subsequent striking against unspecified object, initial encounter; Y93.9 Activity, unspecified; Y92.003 Bedroom of unspecified non-institutional (private) residence as the place of occurrence of the external cause
CPT/HCPCS: 36415; 70450; 80053; 81003; 85025; 99284

== ENCOUNTER → 2024-03-01 13:19 | Outpatient (CLI) | payer MEDICARE, MEDICAID, SELFPAY ==
--- NOTE | 2024-03-01 13:20 | DI.MG.S_ITS ---
BILATERAL DIGITAL DIAGNOSTIC MAMMOGRAM 3D/2D: 03/01/2024 CLINICAL: Nipple discharge, left breast, not bloody. Due for bilateral routine. Comparison is made to exam dated: 03/15/2020 mammogram - [facility]. There are scattered areas of fibroglandular density (category b / 25%-50% glandular tissue). No significant masses, calcifications, or other findings are seen in either breast. IMPRESSION: INCOMPLETE: NEED ADDITIONAL IMAGING EVALUATION No mammographic evidence of malignancy. A targeted ultrasound is recommended and will immediately follow. Based on the Tyrer Cuzick model (a risk assessment model) the patient's lifetime risk is 1.5% and her 10 year risk is 0.0%. According to the ACR, ACS, and NCCN guidelines, an annual breast MRI exam along with mammogram is recommended if the patient's lifetime risk is 20% or greater. This exam was interpreted at Station ID: [id number]. NOTE: For mammograms, a report in lay terms will be sent to the patient. Approximately 15% of breast malignancies will not be visualized mammographically. In the management of a palpable breast mass, a negative mammogram must not discourage biopsy of a clinically suspicious lesion. Electronically Signed By: Ortega Cat M.D. slc/:03/01/2024 14:32:44 ACR BI-RADS Category 0: Incomplete: Need Additional Imaging Evaluation
--- NOTE | 2024-03-01 13:20 | DI.US.S_ITS ---
LIMITED ULTRASOUND OF LEFT BREAST: 03/01/2024 CLINICAL: Nipple discharge, left breast, not bloody. Comparison is made to exams dated: 03/01/2024 mammogram - [facility], 03/15/2020 ultrasound, and 03/15/2020 mammogram - [facility]. Color flow and real-time ultrasound of the left breast 12 o'clock, and retroareolar regions were performed. Ferris scale images of the real-time examination were reviewed. No significant abnormalities were seen sonographically in the left breast. No mass or dilated ducts. IMPRESSION: NEGATIVE There is no sonographic evidence of malignancy. Exam findings were conveyed to the patient. Patient is advised to monitor for significant change. Clinical follow-up as needed. If symptoms persist or worsen, breast MRI should be considered for further evaluation. A 1 year screening mammogram is recommended. This exam was interpreted at Station ID: [id number]. Electronically Signed By: Ortega Cat M.D. slc/:03/01/2024 14:34:47 letter sent: Normal Exam ACR BI-RADS Category 1: Negative
== END ==
PROVIDERS: PCP Internal Medicine; Referring Provider Internal Medicine; Visit Provider Internal Medicine
DX: N64.3 Galactorrhea not associated with childbirth (principal); R92.2 Inconclusive mammogram
CPT/HCPCS: 76642; 77066; G0279

== ENCOUNTER 2024-08-11 09:04 | Emergency (ER) | payer MEDICARE, MEDICAID, SELFPAY ==
[2024-08-11] VITALS (13 sets, daily range): BP systolic 146–209; BP diastolic 68–119; PULSE 57–92; RESP 12–35; TEMP 36.8; O2SAT 96–100; BMI 23.3
--- NOTE | 2024-08-11 09:14 | EKG_ITS ---
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
--- NOTE | 2024-08-11 09:15 | DI.RAD.S_ITS ---
PROCEDURE: XR CHEST 1V INDICATIONS: chest pain TECHNIQUE: One view of the chest was acquired. COMPARISON: None. FINDINGS: Surgical changes and devices: None. Lungs and pleura: Lungs are clear. No pleural effusions or pneumothorax. Mediastinum: Mediastinal contours appear normal. Heart size is normal. Bones and chest wall: No suspicious bony lesions. Overlying soft tissues appear unremarkable. IMPRESSION: No acute cardiopulmonary abnormality is seen. Dictated by: Lew Giron M.D. on 08/11/2024 at 9:36 Approved by: Lew Giron M.D. on 08/11/2024 at 9:36
[2024-08-11 09:32] LABS: Add Manual Diff / Slide Review NO; Basophils Absolute Auto 100 /uL (0-100); Basophils Percent Auto 1.1 % (0-2); Eosinophils Absolute Auto 300 /uL (0-450); Eosinophils Percent Auto 3.9 % (2-4); Hematocrit 42.7 % (36-46); Hemoglobin 14.7 g/dL (12.0-16.0); Lymphocytes Absolute Auto 2300 /uL (1100-4500); Lymphocytes Percent Auto 26.7 % (25-40); Mean Corpuscular HGB Conc 34.4 % (30-36); Mean Corpuscular Hemoglobin 31.3 PG (26-34); Mean Corpuscular Volume 91.1 fL (80-100); Monocytes Absolute Auto 800 /uL (0-900); Monocytes Percent Auto 9.1 % (3-14); Neutrophils Absolute Auto 5000 /uL (1500-7000); Neutrophils Percent Auto 59.2 % (50-75); Platelet Count 329 X10^3/uL (150-400); Red Blood Cell Count 4.69 X10^6/uL (4.0-5.2); Red Cell Distribution Width 14.4 % (11.6-14.8); White Blood Cell Count 8.5 X10^3/uL (4.5-11.0)
[2024-08-11] MEDS: ASPIRIN 81 MG CHEW TAB 324 MG PO (09:32)
[2024-08-11 09:39] LABS: INR 1.1 (0.9-1.3); Prothrombin Time 11.9 SECONDS (9.4-12.5)
[2024-08-11 09:42] LABS: PTT Partial Thromboplastin Tim 32 SECONDS (25.1-36.5)
[2024-08-11 09:45] LABS: Alanine Aminotransferase 21 IU/L (<35); Albumin 4.3 g/dL (3.5-5.0); Albumin Globulin Ratio 1.4 (1.0-2.8); Alkaline Phosphatase 73 U/L (38-126); Aspartate Aminotransferase 35 IU/L (14-36); BUN Creatinine Ratio 14.3 (6-22); Bilirubin Total 0.7 mg/dL (0.2-1.3); Blood Urea Nitrogen 11 mg/dL (7-17); Carbon Dioxide 23 mmol/L (22-32); Chloride 107 mmol/L (98-107); Creatine Kinase 34 U/L (30-135); Estimated Glomerular Filt Rate > 60 mL/min (>60); Globulin 3.1 g/dL (1.7-4.1); Glucose 112 mg/dL (80-110); HEMOLYSIS < 15 (0-50); Lipase 56 U/L (23-300); Magnesium 1.6 mg/dL (1.6-2.3); Potassium 3.4 mmol/L (3.4-5.1); Sodium 141 mmol/L (137-145); Total Protein 7.4 g/dL (6.3-8.2)
--- NOTE | 2024-08-11 09:53 | ED_ITS ---
HPI - Chest Pain General Chief Complaint: Chest Pain Stated Complaint: Having Heart issues Time Seen by Provider: 08/11/24 09:16 Source: patient Mode of arrival: Ambulatory History of Present Illness HPI narrative: 79-year-old woman with a history of hypothyroidism, depression, cognitive dysfunction, migraine, history of a dilated cardiomyopathy, diabetes, coronary artery disease congestive heart failure comes in complaining of chest pain that she states has been there for 50 years. She knows that she had a heart attack with symptoms when she was 48 years old which include chest pain and shortness of breath while [place] with [place]. Regarding her current chest pain she does give a history of more frequent episodes of ?light pain in my upper chest above my breasts: Does not seem to be related to activity, does seem to be related to anxiety and stressors such as arguing about political issues with her son. It seems to be get better when she lays down. She is adamant that she will not do any exercise so this clearly is not causing any of her pain. She says that she had some type of cardiac study 3 years ago however there was no record with [facility] or at [facility]. She has a litany of additional complaints included chronic abdominal pain, taking 40 minutes to pass a bowel movement, chronic ankle pain with unwillingness to even consider physical therapy or any type of exercise to improve this. Related Data Previous Rx's Medication Instructions Recorded escitalopram oxalate 10 mg tablet 10 mg PO DAILY #90 tabs 08/23/20 (Lexapro) liothyronine 5 mcg tablet 2.5 mcg (1/2 x 5 mcg) PO DAILY #90 08/23/20 tabs colchicine 0.6 mg tablet 0.6 mg PO DAILY #90 tabs 02/12/21 allopurinol 300 mg tablet 300 mg PO DAILY #30 tabs 04/10/21 levothyroxine 88 mcg tablet 88 mcg PO DAILY #90 tabs 09/02/23 meclizine 25 mg tablet 25 mg PO TID PRN dizziness #10 tabs 09/25/23 Allergies Allergy/AdvReac Type Severity Reaction Status Date / Time No Known Drug Allergies Allergy Verified 08/11/24 09:25 Review of Systems Review of Systems Narrative: Pertinent positive and negative findings as per HPI Patient History Medical History (Updated 08/11/24 @ 12:47 by Ernestina Tamayo MD) Urge incontinence 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) History of malignant neoplasm of endometrium Stool incontinence UTI (urinary tract infection) Postmenopausal atrophic vaginitis Postsurgical dumping syndrome Acquired hypothyroidism Endometrial ca Surgical History S/P cholecystectomy Social History Smoking Status: Never smoker Smoking Status: Never smoker Exam Initial Vital Signs Initial Vital Signs: Vital Signs Temperature 98.2 F 08/11/24 09:05 Pulse Rate 92 H 08/11/24 09:05 Respiratory Rate 12 08/11/24 09:05 Blood Pressure 209/86 H 08/11/24 09:05 Pulse Oximetry 97 08/11/24 09:05 Oxygen Delivery Method Room Air 08/11/24 09:05 General: Healthy appearing, in no acute distress. Able to give a complete and coherent history. Well-nourished well-developed HEENT: Moist mucous membranes, normal sclera with reactive pupils, Respiratory: Lungs are clear to auscultation, no wheezing no rales no rhonchi. Full and symmetrical air movement Cardiac: Regular rate and rhythm no murmurs no bruits Abdomen: Soft, nontender, good bowel tones, no flank pain Skin: Warm and dry, no rashes Neurologic: Grossly neurologically intact with no obvious asymmetries or abnormalities Extremities: No trauma, well perfused Psych: Cooperative, tangential Course Orders Ordered: ED Orders 08/11/24 09:15 XR chest 1V Stat EKG-12 Lead Stat 08/11/24 09:20 Complete Blood Count AUTO DIFF Stat Comprehensive Metabolic Panel Stat Lipase Stat Magnesium Stat NT-proBNP (BNP-Adult 18+) Stat PTT Partial Thromboplastin Marco Stat Prothrombin Time INR Stat Troponin & CK Cardiac Panel Stat 08/11/24 11:24 Trop I [Troponin I] Stat Discontinued Medications Aspirin (Aspirin 81 Mg Chew Tab) 324 mg PO NOW ONE Stop: 08/11/24 09:16 Last Admin: 08/11/24 09:32 Dose: 324 mg Documented By: MPO Vital Signs Vital signs: Vital Signs - 8 hr 08/11/24 09:05 08/11/24 09:11 08/11/24 09:12 Temperature 98.2 F Pulse Rate 92 H Respiratory Rate 12 Blood Pressure 209/86 H 209/86 H Pulse Oximetry 97 97 Oxygen Delivery Method Room Air 08/11/24 09:12 08/11/24 09:30 08/11/24 09:31 Temperature Pulse Rate 83 79 Respiratory Rate 26 H Blood Pressure 160/85 H Pulse Oximetry 97 99 Oxygen Delivery Method 08/11/24 09:31 08/11/24 10:00 08/11/24 10:00 Temperature Pulse Rate 78 65 Respiratory Rate 26 H 21 Blood Pressure 171/82 H Pulse Oximetry 99 100 Oxygen Delivery Method 08/11/24 10:30 08/11/24 10:30 08/11/24 11:00 Temperature Pulse Rate 63 57 L Respiratory Rate 35 H 14 Blood Pressure 175/119 H Pulse Oximetry 99 99 Oxygen Delivery Method 08/11/24 11:00 Temperature Pulse Rate Respiratory Rate Blood Pressure 160/71 H Pulse Oximetry Oxygen Delivery Method MDM - Chest Pain Lab Data 08/11/24 09:20 08/11/24 09:20 Labs: Lab Results 08/11/24 08/11/24 Range/Units 09:20 11:24 WBC 8.5 (4.5-11.0) X10^3/uL RBC 4.69 (4.0-5.2) X10^6/uL Hgb 14.7 (12.0-16.0) g/dL Hct 42.7 (36-46) % MCV 91.1 (80-100) fL MCH 31.3 (26-34) PG MCHC 34.4 (30-36) % RDW 14.4 (11.6-14.8) % Plt Count 329 (150-400) X10^3/uL Neut % (Auto) 59.2 (50-75) % Lymph % (Auto) 26.7 (25-40) % Spink % (Auto) 9.1 (3-14) % Eos % (Auto) 3.9 (2-4) % Baso % (Auto) 1.1 (0-2) % Neut # (Auto) 5000 (4462-3481) /uL Lymph # (Auto) 2300 (6525-6995) /uL Spink # (Auto) 800 (0-900) /uL Eos # (Auto) 300 (0-450) /uL Baso # (Auto) 100 (0-100) /uL PT 11.9 (9.4-12.5) SECONDS INR 1.1 (0.9-1.3) APTT 32 (25.1-36.5) SECONDS Sodium 141 (137-145) mmol/L Potassium 3.4 (3.4-5.1) mmol/L Chloride 107 (98-107) mmol/L Carbon Dioxide 23 (22-32) mmol/L BUN 11 (7-17) mg/dL Creatinine 0.77 (0.52-1.04) mg/dL Estimated GFR > 60 (>60) mL/min BUN/Creatinine Ratio 14.3 (6-22) Glucose 112 H (80-110) mg/dL Calcium 9.0 (8.4-10.2) mg/dL Magnesium 1.6 (1.6-2.3) mg/dL Total Bilirubin 0.7 (0.2-1.3) mg/dL AST 35 (14-36) IU/L ALT 21 (<35) IU/L Alkaline Phosphatase 73 (38-126) U/L Total Creatine Kinase 34 (30-135) U/L Troponin I < 0.012 < 0.012 (0.01-0.034) ng/mL NT-Pro-B Natriuret Pep 212 (<450) pg/mL Total Protein 7.4 (6.3-8.2) g/dL Albumin 4.3 (3.5-5.0) g/dL Globulin 3.1 (1.7-4.1) g/dL Albumin/Globulin Ratio 1.4 (1.0-2.8) Lipase 56 (23-300) U/L MDM Narrative Medical decision making narrative: CC: Chest pain Complicating co-morbidities: Cognitive dysfunction, patient does not remember much of her medical history but review of medical records indicates that she does have a history cardiomyopathy, congestive heart failure, hypertension, hyperlipidemia history of sleeve gastrectomy, history of uterine cancer Data collected from: patient Social determinants of health that may influence the patients condition: Cognitive decline, delusional thinking, believe in conspiracy theories Medical records reviewed: Records from [facility], most of those records related to chronic migraine from her neurologist and records from primary care physicians at [facility] are all reviewed Differential considered: Anxiety, GI related symptoms, stable angina, unstable angina Exam documented above, pertinent findings include: Exam is entirely benign. Lab Test results independently reviewed as above. Pertinent findings: CBC is unremarkable Chemistries are reassuring Initial troponin is undetectable Initial BNP is within normal limits Independently reviewed EKG: EKG shows sinus rhythm at a rate of 74 with frequent PVCs. No acute ischemic changes Imaging studies independently reviewed: Chest x-ray is reassuring with no obvious abnormalities Treatments: Aspirin Discussion: 79-year-old woman comes in with a litany of complaints the emergent issue seems to be her concerns with chest pain. With some careful unraveling of the tangential story it seems that she may have been having increasing chest pain at rest not provoked by exercise not associated with diaphoresis dyspnea or nausea increasing over the last 2 weeks worse in the last 48 hours. Her story is far more consistent with anxiety than chest pain. First and 2nd troponins are unremarkable. Remainder of blood workup is reassuring. Patient is quite relieved that she will be able to go home today. Asked that she follow up with her primary care physician. She will benefit from outpatient stress testing. It is unclear how much cardiac workup has actually been done and what her final diagnoses and past history truly are. At this point she is comfortable, pain- free, chatting amiably and safe for hospital discharge Her heart score is 1 based on her age. Discharge Plan Departure Patient Disposition: Home Clinical Impression: Chest pain Qualifiers: Chest pain type: other chest pain Qualified Code(s): R07.89 - Other chest pain Instructions: DI for Atypical Chest Pain, DI for Anxiety -- Adult, DI for Panic Disorder Activity Restrictions/Additional Instructions: Thank you for coming in today Based on your physical exam, EKG, chest x-ray and blood work with repeat troponin testing, I do not think that this heaviness that you have been feeling in your chest is related to your heart. I believe is safe for you to go home. I would recommend follow up with your primary care physician to discuss outpatient cardiac stress testing I have given you some additional information on anxiety as well as panic disorder. I suspect some of the discomfort the you are experiencing is related to anxiety. You have mentioned that you are watching far less TV and not having news channels on all the time. I think this is very healthy and very appropriate for maintaining her mental health. Limit you are news reading to very specified times and very specified periods to make sure that your up-to-date but not overwhelmed If you find that you are getting worse or develop any new symptoms, please feel free to return to the emergency department for further evaluation. Prescriptions: No Action allopurinol 300 mg tablet 300 mg PO DAILY Qty: 30 0RF levothyroxine 88 mcg tablet 88 mcg PO DAILY Qty: 90 0RF colchicine 0.6 mg tablet 0.6 mg PO DAILY Qty: 90 11RF Rx Instructions: 2 tabs with first sign of flare escitalopram oxalate [Lexapro] 10 mg tablet 10 mg PO DAILY Qty: 90 3RF liothyronine 5 mcg tablet 2.5 mcg PO DAILY Qty: 90 3RF meclizine 25 mg tablet 25 mg PO TID PRN (Reason: dizziness) Qty: 10 0RF Referrals: Feli Neves MD [Primary Care Provider] - Stand Alone Forms: Patient Portal/API/Survey
[2024-08-11 09:56] LABS: NT-proBNP (BNP-Adult 18+) 212 pg/mL (<450); Troponin I < 0.012 ng/mL (0.01-0.034)
[2024-08-11 11:57] LABS: Troponin I < 0.012 ng/mL (0.01-0.034)
== END 2024-08-11 13:01 | disposition home or self-care (01) ==
PROVIDERS: Emergency Provider Emergency Medicine; PCP Internal Medicine
DX: R07.89 Other chest pain (principal); F32.A Depression, unspecified; F41.9 Anxiety disorder, unspecified
CPT/HCPCS: 36415; 71045; 80053; 82550; 83690; 83735; 83880; 84484; 85025; 85610; 85730; 93005; 99284

== ENCOUNTER → 2024-11-03 13:39 | Outpatient (CLI) | payer MEDICARE, MEDICAID, SELFPAY ==
--- NOTE | 2024-11-03 13:47 | DI.NM.S_ITS ---
PROCEDURE: NM ZULEIMA PERF SPECT R&S PHARM Rest and pharmacological stress myocardial perfusion SPECT with gated imaging and ejection fraction RADIOPHARMACEUTICAL: 27.5 mCi Tc-99m tetrafosmin IV at rest and 25.9 mCi Tc-99m tetrafosmin IV at peak effect of pharmacological stress. [id number] was performed. INDICATIONS: chest pain PQRS ATTESTATIONS: Measure 322 - Is this imaging test primarily performed on a low-risk surgery patient for preoperative evaluation within 30 days preceding their low-risk non-cardiac surgery? Low-risk surgery is defined as cardiac or myocardial infarction less than 1%, including (but not limited to) endoscopic procedures, superficial procedures, cataract surgery, and excisional breast surgery: Answer: No Measure 323 - Is this imaging test performed primarily for the monitoring of an asymptomatic patient who had percutaneous coronary intervention on the visit date or within 2 years of the visit date? Answer: No Measure 324 - Is this imaging test performed primarily for the initial detection and risk assessment on an asymptomatic, low coronary heart disease patient? Low CHD risk definition = clinicians should consider the maximum number of available patient factors used to estimate risk based on Colden (ATP III criteria), typically age, gender, diabetes, smoking status, and use of blood pressure medication, and integrate age appropriate estimates for missing elements, such as LDL or standard blood pressure. Answer: No TECHNIQUE: Radiopharmaceutical was injected at peak stress test, and also at rest. SPECT images were obtained. SPECT myocardial perfusion images were displayed in short axis, horizontal long axis, and vertical long axis views. Gated images were reviewed using [employer] software. COMPARISON: None. CARDIAC STRESS: A pharmacologic stress test was performed under the supervision of an attending staff, using an infusion of 0.4 mg of Lexiscan. Hemodynamic data: There is normal blood pressure and heart rate response to pharmacologic stress. Symptoms: The patient denied anginal chest pain. Aminophylline: None EKG: No diagnostic changes of ischemia; no ectopy. FINDINGS: Raw data: There is good myocardial uptake of radiotracer. No significant motion artifacts. Hatt-nn-enonb ratio is 0.14 (normal is less than 0.38 for tetrafosmin tracer). Left ventricle function: Gated images demonstrate normal left ventricular wall thickening. No segmental wall motion abnormalities. No transient ischemic dilation; TID is 0.86 (normal less than 1.3). Left ventricle resting end diastolic volume is 56 mL. Left ventricle stress ejection fraction is 95%; normal range is above 45%. Myocardial perfusion: Resting images had mild hypoperfusion in the entire inferior segment. Stress images had no perfusion defects. No prone images obtained. IMPRESSION: 1. Negative Lexiscan myocardial perfusion scan for ischemia and infarction. Dictated by: Jabier Allred M.D. on 11/04/2024 at 16:24 Approved by: Jabier Allred M.D. on 11/04/2024 at 16:25
== END ==
PROVIDERS: PCP Internal Medicine; Referring Provider Internal Medicine; Visit Provider Internal Medicine
DX: R07.9 Chest pain, unspecified (principal)
CPT/HCPCS: 78452; 93017; A9502; J2785

== ENCOUNTER → 2025-05-22 10:46 | Outpatient (CLI) | payer MEDICARE, MEDICAID, SELFPAY ==
--- NOTE | 2025-05-22 10:48 | DI.CT.S_ITS ---
PROCEDURE: CT ABDOMEN PELVIS W CON INDICATIONS: Weight loss TECHNIQUE: After the administration of intravenous contrast, axial sections acquired from the lung bases to the pubic symphysis. Coronal and sagittal reformats were performed. For radiation dose reduction, the following was used: automated exposure control, adjustment of mA and/or kV according to patient size. COMPARISON: [facility], CT, CT ABDOMEN PELVIS W CON, 03/03/2021, 17:34. FINDINGS: Image quality: Diagnostic. Lower Chest: No significant findings. ABDOMEN: Liver: No solid mass. Gallbladder: Surgically absent Biliary ducts: No biliary dilation. Pancreas: No ductal dilation. Spleen: Size is within normal limits. Adrenal Glands: No adrenal nodules. Kidneys and Ureters: No hydronephrosis. No solid mass. No complex renal cystic lesion which requires follow up. Stomach and Bowel: Stable postsurgical changes from prior gastric bypass. Normal colonic caliber, without significant wall thickening. Scattered sigmoid diverticulosis without acute inflammation Peritoneum: No abnormal intraperitoneal fluid. No free air. Ventral Wall: No significant ventral hernia. Abdominal Nodes: No retroperitoneal or mesenteric adenopathy by size criteria. Vessels: Aorta and inferior vena cava are normal in size. Retroaortic left renal vein, as before. PELVIS: Pelvic Organs: Status post hysterectomy. Bladder: No bladder wall thickening, accounting for underdistention. Pelvic Nodes: No enlarged lymph nodes. Miscellaneous: No inguinal hernias are seen. Bones: No aggressive osseous abnormality. Bilateral L5 pars defects with grade 1 anterolithesis at L4 on L5. IMPRESSION: Sigmoid diverticulosis without CT evidence of acute diverticulitis Stable postsurgical changes from prior gastric bypass and cholecystectomy. No active disease process identified. No abdominopelvic adenopathy. Approved by: Ludivina Carrillo M.D.,Ph.D. on 05/22/2025 at 17:09
== END ==
LOC: CT 10:48
PROVIDERS: PCP Internal Medicine; Referring Provider Internal Medicine; Visit Provider Internal Medicine
DX: K57.30 Diverticulosis of large intestine without perforation or abscess without bleeding (principal); R63.4 Abnormal weight loss; R11.0 Nausea; Z90.49 Acquired absence of other specified parts of digestive tract; Z90.710 Acquired absence of both cervix and uterus; Z98.84 Bariatric surgery status
CPT/HCPCS: 74177; Q9967